=== PATIENT | male | born 1940 | race Caucasian/White ===

== ENCOUNTER → 2017-12-26 | Outpatient (CLI) | payer MEDICARE ==
--- NOTE | 2017-12-26 11:58 | BD ---
EXAMINATION TYPE: Axial Bone Density DATE OF EXAM: 12/26/2017 COMPARISON: NONE CLINICAL HISTORY: Height: 5 FT 8 IN Weight: 226 FRAX RISK QUESTIONS: Glucocorticoids (More than 3mos): YES (Ex: prednisone, prednisolone, methylprednisolone, dexamethasone, and hydrocortisone). History of Fracture in Adulthood: YES RISK FACTORS HISTORY OF: Active: YES Lost more than 2 inches in height since high school: YES MEDICATIONS: Prednisone or other steroids: YES How Lon YEARS Additional Medications: PRENISONE, BABY ASPIRIN, LIPITOR, LOVAZA, Additional History: PT HAS PMR POLYMYLAGRA RHEUMATICA EXAM MEASUREMENTS: Bone mineral densitometry was performed using the [employer] System. Bone mineral density as measured about the Lumbar spine is: ----- L1-L4(G/cm2): 1.232 T Score Values are as follows: ----- L2: 0.3 ----- L3: 0.8 ----- L4: 0.4 ----- L1-L4: 0.4 BASELINE Bone mineral density about the R hip (g/cm2): 1.285 Bone mineral density about the L hip (g/cm2): 1.258 T Score values are as follows: -----R Neck: 1.8 -----L Neck: 1.6 -----R Total: 3.0 -----L Total: 2.6 BASELINE IMPRESSION: Normal (Values between +1 and -1 indicate normal bone mass). Consider repeating this study in 5 year s or sooner if there is some new clinical indication. NOTE: T-SCORE=SD OF THE YOUNG ADULT MEAN.
== END | disposition home or self-care (01) ==
LOC: RADBDWWP 07:50
PROVIDERS: ATTEND Internal Medicine Rheumatology
DX: Z79.52 Long term (current) use of systemic steroids (principal)
CPT/HCPCS: 77080

== ENCOUNTER → 2018-09-19 | Outpatient (CLI) | payer MEDICARE ==
--- NOTE | 2018-09-20 13:34 | CT ---
EXAMINATION TYPE: CT abdomen pelvis wo con DATE OF EXAM: 09/19/2018 COMPARISON: 07/07/2013 HISTORY: Rt flank pain x3 weeks. Hx renal stones CT DLP: 1167.40 mGycm Automated exposure control for dose reduction was used. TECHNIQUE: Helical acquisition of images was performed from the lung bases through the pelvis. FINDINGS: LUNG BASES: Scattered areas of atelectasis are seen at the lung bases. Right hemidiaphragm elevation is noted. LIVER/GB: The unenhanced liver is unremarkable in contour and morphology. Gallbladder surgically abse nt. PANCREAS: Pancreatic parenchymal atrophy is seen without ductal dilatation. The pancreatic tail appea rs slightly more bulbous than on the prior exam and contains surrounding slight inflammatory fat stra nding. SPLEEN: There a punctate hypodensity in the medial spleen is unchanged from 2014 and therefore benign . ADRENALS: No significant abnormality is seen. KIDNEYS: There is a nonobstructing 3 mm right midpole renal calculus. There are bilateral renal cysts measuring up to 3.8 cm on the left and 1.8 cm on the right. No hydronephrosis of either kidney. FREE AIR: No free air is visualized ADENOPATHY: No greater than 1 cm short axis lymph node is seen in the abdomen or pelvis. Punctate po ssible hazy lymph node is seen in the right lower quadrant on image 130. REPRODUCTIVE ORGANS: Brachytherapy beads are noted in the prostate gland URINARY BLADDER: Incompletely distended. OSSEOUS STRUCTURES: Bilateral femoral head sclerosis is likely degenerative as it is geographic. Com pression deformity of the T10 vertebral body is unchanged from 2014. BOWEL: There are numerous sigmoid diverticula without pericolonic fat stranding. No dilated large or small bowel. OTHER: Moderate atherosclerosis is seen of the abdominal aorta and its branches. There is ectasia of the distal abdominal aorta and curvilinear displaced calcifications on image 79 represented above a c hronic short segment dissection. 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 IMPRESSION: 1. MILD FAT STRANDING SURROUNDING THE PANCREATIC TAIL PRESUMED TO REPRESENT MILD ACUTE UNCOMPLICATED PANCREATITIS. CORRELATE WITH SERUM AMYLASE AND LIPASE THIS DOES NOT FIT THE PATIENT'S CLINICAL PRE SENTATION OF RIGHT SIDED ABDOMINAL PAIN FOR 3 WEEKS. ADDITIONALLY THE PANCREATIC TAIL IS BULBOUS AND THREE-PHASE CONTRAST-ENHANCED EXAM IS RECOMMENDED TO EXCLUDE PANCREATIC NEOPLASM INDUCING MILD PANCRE ATITIS. 2. NO HYDRONEPHROSIS OR LEFT-SIDED NEPHROLITHIASIS. SOLITARY SUBCENTIMETER NONOBSTRUCTING RIGHT RENAL CALCULUS IS SEEN. 3. 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 A Yellow level critical message alert has been initiated for Edward Short Jr, DO via the [employer] Critical Results System on 09/20/2018 1:32 PM. This message alert has been sent to Edward middleton Jr, DO via the preferences provided by the clinician for the receipt of Radiology Critical Finding s. Message ID [id number].
== END | disposition home or self-care (01) ==
LOC: RADCTMAIN 15:47
PROVIDERS: ATTEND Family Medicine
DX: N20.0 Calculus of kidney (principal); K85.90 Acute pancreatitis without necrosis or infection, unspecified; I71.02 Dissection of abdominal aorta; I72.3 Aneurysm of iliac artery; Z88.2 Allergy status to sulfonamides; Z88.5 Allergy status to narcotic agent
CPT/HCPCS: 74176

== ENCOUNTER → 2018-09-26 | Outpatient (CLI) | payer MEDICARE ==
--- NOTE | 2018-09-30 11:13 | PE ---
Nuclear medicine PET/CT HISTORY: Abdominal pain, abdominal mass initial pancreas Patient received 11.5 mCi F-18 FDG intravenously in delayed scanning was performed from the skull bas e to the mid thighs. Localization and attenuation correction CT scan was performed. Correlation to prior CT scan 09/19/2018 Neck and chest: There is no evident adenopathy along the cervical regions, no mediastinal, axillary, or hilar adenopathy. The left lobe of the thyroid gland shows focal increased uptake associated with a low dense focus, thyroid ultrasound and possible fine-needle aspiration should be considered, SUV 3 .1. There is no evident lung mass. There is atelectatic change in the right middle lobe, no associated hy permetabolic uptake. Coronary artery calcifications are present. ABDOMEN: At the level of the tail of the pancreas there is hypermetabolic uptake associated with the soft tissue density seen on prior CT. SUV is 3.5. There is no evident liver mass or retroperitoneal a denopathy. No ascites. Low dense foci associated with the kidneys are again seen and likely represent cysts. Aorta shows atheromatous change. There is some ectasia of the common iliac artery on the left . No pelvic adenopathy. Uptake along the bowel is likely physiologic. Metallic densities are associat ed with the prostate region. No free fluid. Osseous structures are within normal limits. IMPRESSION: There is hypermetabolic uptake associated with the patient's pancreatic tail soft tissue lesion, findings suggest pancreatic carcinoma. Findings in the left lobe of the thyroid as described. Additional findings above.
== END | disposition home or self-care (01) ==
LOC: RADPETMAIN 09-25 14:21
PROVIDERS: ATTEND Family Medicine
DX: R93.5 Abnormal findings on diagnostic imaging of other abdominal regions, including retroperitoneum (principal); K85.20 Alcohol induced acute pancreatitis without necrosis or infection; I25.10 Atherosclerotic heart disease of native coronary artery without angina pectoris; J98.11 Atelectasis; Z88.5 Allergy status to narcotic agent; Z88.2 Allergy status to sulfonamides
CPT/HCPCS: 78815; A9552

== ENCOUNTER → 2020-04-20 | Outpatient (CLI) | payer MEDICARE ==
--- NOTE | 2020-04-20 08:33 | US ---
EXAMINATION TYPE: US kidneys/renal and bladder DATE OF EXAM: 04/20/2020 COMPARISON: NONE CLINICAL HISTORY: R94.4 Abnormal renal function. abnormal renal function EXAM MEASUREMENTS: Right Kidney: 10.0 x 5.2 x 4.9 cm Left Kidney: 11.5 x 5.5 x 4.5 cm Right Kidney: lobulated, multiple cystic areas noted, largest = 1.9 x 1.8 x 1.7cm Left Kidney: lobulated, cystic areas noted, largest = 4.4 x 4.2 x 3.9cm Bladder: not fully distended, appears wnl Bilateral Jets seen: no There is no evidence for hydronephrosis at this point in time. No nephrolithiasis is seen. No solid masses are identified. The urinary bladder is anechoic. Bilateral ureteral jets are seen. IMPRESSION: Renal cystic changes.
== END | disposition home or self-care (01) ==
LOC: RADUSWWP 07:42
PROVIDERS: ATTEND Family Medicine
DX: N28.1 Cyst of kidney, acquired (principal); Z88.2 Allergy status to sulfonamides; Z88.5 Allergy status to narcotic agent
CPT/HCPCS: 76770

== ENCOUNTER → 2020-04-22 | Outpatient (CLI) | payer MEDICARE ==
[2020-04-22 19:59] LABS: Total Volume 24 Hour,Urine 2550 mL
[2020-04-22 21:03] LABS: Total Protein 24 Hour,Urine 117.3 mg/24Hr
== END | disposition home or self-care (01) ==
LOC: LABWHC1 08:59
PROVIDERS: ATTEND Family Medicine
DX: I10 Essential (primary) hypertension (principal); R94.4 Abnormal results of kidney function studies
CPT/HCPCS: 36415; 82575; 84156

== ENCOUNTER → 2020-08-29 | Outpatient (CLI) | payer MEDICARE ==
[2020-08-29 19:48] LABS: African American GFR (CKD) 65.3 (60.0-200.0); Anion Gap 5.5 mmol/L (4.00-12.00); Calcium 9.9 mg/dL (8.7-10.3); Carbon Dioxide 25.5 mmol/L (21.6-31.8); Non-African American GFR(CKD) 56.4 (60.0-200.0); Potassium 5.5 mmol/L (3.5-5.5)
== END | disposition home or self-care (01) ==
LOC: LABWHC1 14:25
PROVIDERS: ATTEND Internal Medicine Nephrology
DX: N18.32 Chronic kidney disease, stage 3b (principal)
CPT/HCPCS: 36415; 80048

== ENCOUNTER → 2021-10-03 | Outpatient (CLI) | payer MEDICARE ==
--- NOTE | 2021-10-04 07:01 | US ---
EXAMINATION TYPE: US kidneys/renal and bladder DATE OF EXAM: 10/03/2021 COMPARISON: 04/20/2020 CLINICAL HISTORY: N28.1 Bilateral Renal Cyst. EXAM MEASUREMENTS: Right Kidney: 10.0 x 4.9 x 5.8 cm Left Kidney: 10.9 x 5.3 x 5.4 cm Right Kidney: lobulated, multiple cysts with largest measuring 2.3cm Left Kidney: lobulated, multiple cysts largest measuring 4.2cm Bladder: wnl Bilateral Jets seen: right jet seen, left jet not seen No hydronephrosis or nephrolithiasis. IMPRESSION: 1. Lobulated renal cortices bilateral hypoechoic nodules most suggestive of renal cysts similar in si ze to the prior exam..
== END | disposition home or self-care (01) ==
LOC: RADUSWWP 15:32
PROVIDERS: ATTEND Internal Medicine Nephrology
DX: N28.1 Cyst of kidney, acquired (principal)
CPT/HCPCS: 76770

== ENCOUNTER → 2022-08-01 | Outpatient (CLI) | payer MEDICARE ==
--- NOTE | 2022-08-01 12:03 | FL ---
EXAMINATION TYPE: FL barium swallow DATE OF EXAM: 08/01/2022 COMPARISON: None HISTORY: Pills getting stuck in throat TECHNIQUE: A double air contrast esophagram study is performed. FINDINGS: Esophagus opens to normal caliber and has normal contour to the gastroesophageal junction. Gastroesop hageal junction opens to normal caliber. Multiple tertiary contractions and some leak secondary contr actions were evident during the examination. There is some hesitancy during portions of the examinati on of distal esophageal emptying. There appears to be complete stripping of the esophageal bolus in t he horizontal drinking position. No persistent stenosis evident. No reflux was evident. Images: 130 Fluoroscopy time: 32 seconds DIP: 2045.40 IMPRESSIONS: 1. Presbyesophagus.
== END | disposition home or self-care (01) ==
LOC: RADUSWWP 10:53
PROVIDERS: ATTEND Otolaryngology
DX: K22.89 Other specified disease of esophagus (principal); R13.10 Dysphagia, unspecified
CPT/HCPCS: 74220